=== PATIENT | male | born 1975 ===

== ENCOUNTER 2023-12-13 09:55 | Outpatient (CLI) | payer OTHER | END 2023-12-13 10:03 | disposition home or self-care (01) | LOC: RAD 09:55 | PROVIDERS: ATTEND Orthopaedic Surgery | DX: M25.572 Pain in left ankle and joints of left foot (principal); M79.672 Pain in left foot ==

== ENCOUNTER 2024-01-17 09:42 | Outpatient (CLI) | payer OTHER | END 2024-01-17 09:45 | disposition home or self-care (01) | LOC: RAD 09:42 | PROVIDERS: ATTEND Orthopaedic Surgery | DX: S92.355D Nondisplaced fracture of fifth metatarsal bone, left foot, subsequent encounter for fracture with routine healing (principal) ==